=== PATIENT | female | born 1955 | race Caucasian/White ===

== ENCOUNTER 2019-05-20 19:20 | Inpatient (IN) | payer MEDICARE, MEDICAID ==
[~2019-05-20] VITALS: Ht 175.3 cm; Wt 54.0 kg
[2019-05-20] MEDS ORDERED: ALBUTEROL/IPRATROPIUM 2.5MG/0.5MG, 3 ML ONE (20:23)
[2019-05-20] MEDS ORDERED: SODIUM CHLORIDE FLUSH 10ML SYR IVF ONE (20:30)
[2019-05-20] MEDS ORDERED: ALBUTEROL/IPRATROPIUM 2.5MG/0.5MG, 3 ML NPPB ONE (20:30)
[2019-05-20 20:46] LABS: BASOPHILS # (AUTO) 0.06 x10^3/uL (0-0.1); BASOPHILS % (AUTO) 1 % (0-1); EOSINOPHILS % (AUTO) 10 % (1-7); LYMPHOCYTES % (AUTO) 28 % (22-44); MD NO; MEAN CORPUSCULAR HEMOGLOBIN 28.1 pg (27.0-34.8); MEAN CORPUSCULAR HGB CONC 31.7 g/dL (32.4-35.8); MEAN CORPUSCULAR VOLUME 88.8 fL (80-100); MEAN PLATELET VOLUME 8.1 fL (7.4-10.4); MONOCYTES # (AUTO) 0.98 x10^3/uL (0.2-0.8); MONOCYTES % (AUTO) 13 % (2-9); NEUTROPHILS % (AUTO) 49 % (42-75); PLATELET COUNT 318 x10^3/uL (130-400); RED BLOOD COUNT 4.52 x10^6/uL (3.82-5.3); RED CELL DISTRIBUTION WIDTH 17.3 % (9.6-15.2)
[2019-05-20 20:56] LABS: ALANINE AMINOTRANSFERASE 51 U/L (12-78); ANION GAP 4 mmol/L (5-15); CALCIUM 9.6 mg/dL (8.5-10.1); CHLORIDE 105 mmol/L (98-107); CREATININE 1.08 mg/dL (0.55-1.02)
[2019-05-20 21:00] LABS: ALKALINE PHOSPHATASE 90 U/L (45-117); BILIRUBIN,TOTAL 0.3 mg/dL (0.2-1.0); TOTAL PROTEIN 6.7 g/dL (6.4-8.2); TROPONIN I 0.039 ng/mL (0.000-0.045)
--- NOTE | 2019-05-20 21:09 | NUR ---
PT UP FOR RECHECK. ALL RESULTS BACK.
[2019-05-20] MEDS ORDERED: SODIUM CHLORIDE FLUSH 10ML SYR IVF PRN (21:30)
--- NOTE | 2019-05-20 22:02 | NUR ---
report to bennie byrd for room 369
[2019-05-20] MEDS ORDERED: FLUT1AER INH (22:30)
[2019-05-20] MEDS ORDERED: MELA10TA PO (22:30)
[2019-05-20] MEDS ORDERED: VITA1CAP7 PO (22:30)
[2019-05-20] MEDS ORDERED: CRANBERRY (22:30)
[2019-05-20] MEDS ORDERED: METO25TA35 PO (22:30)
[2019-05-20] MEDS ORDERED: FLUO10TA PO (22:30)
[2019-05-20] MEDS ORDERED: CHOL5000 PO (22:30)
[2019-05-20] MEDS ORDERED: DOXE50CA PO (22:30)
[2019-05-20 22:47] VITALS: BP 123/88
[2019-05-20] MEDS ORDERED: FUROSEMIDE 20 MG/2 ML IV ONE (23:00)
[2019-05-21] MEDS ORDERED: ENALAPRILAT 1.25 MG/ML, 2ML IVPush PRN (00:30)
[2019-05-21] MEDS ORDERED: MELATONIN 5 MG TABLET PO PRN (00:30)
[2019-05-21] MEDS ORDERED: LIDODERM 5% PATCH TD PRN (00:30)
[2019-05-21] MEDS ORDERED: ONDANSETRON 2MG/ML, 2ML IVPush PRN (00:30)
[2019-05-21] MEDS ORDERED: BISACODYL 10 MG SUPP PR PRN (00:30)
[2019-05-21] MEDS ORDERED: POLYETHYLENE GLYCOL 17 GM PACKET PO PRN (00:30)
[2019-05-21] MEDS: DOXEPIN 25 MG CAPSULE PO SCH ×2 (00:52→20:51)
[2019-05-21] MEDS: HEPARIN 5,000 UNITS/ML, 1ML SQ SCH ×3 (00:52→16:24)
[2019-05-21 00:54] VITALS: BP 138/88
[2019-05-21 02:27] LABS: FREE T4 (FREE THYROXINE) 1.14 ng/dL (0.76-1.46); TROPONIN I 0.019 ng/mL (0.000-0.045)
[2019-05-21 02:37] LABS: HEMOGLOBIN A1C 6.1 % (4.2-6.3)
[2019-05-21 06:51] LABS: TROPONIN I < 0.015 ng/mL (0.000-0.045)
[2019-05-21] MEDS ORDERED: BUDESONIDE 0.5 MG/2 ML INHA ONE (06:56)
[2019-05-21] MEDS: ALBUTEROL/IPRATROPIUM 2.5MG/0.5MG, 3 ML NPPB SCH ×4 (07:00→18:13)
[2019-05-21 08:01] VITALS: BP 115/79
[2019-05-21] MEDS: BUDESONIDE 0.5 MG/2 ML INHA NPPB SCH ×2 (09:00→18:13)
[2019-05-21] MEDS: FLUOXETINE 10 MG CAP PO SCH (09:56)
[2019-05-21] MEDS: METOPROLOL TARTRATE 25 MG TABLET PO SCH (09:56)
[2019-05-21 16:45] VITALS: BP 125/87
[2019-05-21 19:50] VITALS: BP 124/80
[2019-05-21] MEDS: methylPREDNISolone SOD SUCC 125 MG/2 ML IVPush SCH (20:51)
[2019-05-21] MEDS: NICOTINE 21 MG/24 HR PATCH.TD24 TD SCH (21:18)
[2019-05-22] MEDS: HEPARIN 5,000 UNITS/ML, 1ML SQ SCH ×3 (00:48→15:07)
[2019-05-22 01:44] VITALS: BP 133/87
[2019-05-22] MEDS: methylPREDNISolone SOD SUCC 125 MG/2 ML IVPush SCH ×4 (03:13→20:53)
[2019-05-22 05:52] LABS: BASOPHILS % (AUTO) 0 % (0-1); EOSINOPHILS % (AUTO) 0 % (1-7); LYMPHOCYTES # (AUTO) 0.57 x10^3/uL (1-3.4); LYMPHOCYTES % (AUTO) 8 % (22-44); MD NO; MEAN CORPUSCULAR HEMOGLOBIN 27.3 pg (27.0-34.8); MEAN CORPUSCULAR HGB CONC 31.5 g/dL (32.4-35.8); MEAN CORPUSCULAR VOLUME 86.7 fL (80-100); MEAN PLATELET VOLUME 8.4 fL (7.4-10.4); MONOCYTES # (AUTO) 0.08 x10^3/uL (0.2-0.8); MONOCYTES % (AUTO) 1 % (2-9); NEUTROPHILS # (AUTO) 6.57 x10^3/uL (1.8-6.8); NEUTROPHILS % (AUTO) 91 % (42-75); PLATELET COUNT 294 x10^3/uL (130-400); RED BLOOD COUNT 4.39 x10^6/uL (3.82-5.3)
[2019-05-22 06:05] LABS: ANION GAP 6 mmol/L (5-15); CALCIUM 9.2 mg/dL (8.5-10.1); CHLORIDE 101 mmol/L (98-107); CHOLESTEROL, TOTAL 181 mg/dL (140-239); CREATININE 0.96 mg/dL (0.55-1.02); TRIGLYCERIDES 38 mg/dL (50-200); VLDL CHOLESTEROL 8 mg/dL (0-25)
[2019-05-22 06:07] LABS: CHOL/HDL RATIO 2.5; HDL CHOL % 39 % (28-40); HDL CHOLESTEROL (DIRECT) 71 mg/dL (40-60); LDL CHOLESTEROL,CALCULATED 102 mg/dL (54-169); LDL/HDL RATIO 1.4 (0.5-3.0)
[2019-05-22] MEDS: ALBUTEROL/IPRATROPIUM 2.5MG/0.5MG, 3 ML NPPB SCH ×3 (06:43→20:20)
[2019-05-22 06:48] VITALS: BP 145/98
[2019-05-22] MEDS: FLUOXETINE 10 MG CAP PO SCH (08:11)
[2019-05-22] MEDS: METOPROLOL TARTRATE 25 MG TABLET PO SCH (08:15)
[2019-05-22] MEDS: BUDESONIDE 0.5 MG/2 ML INHA NPPB SCH ×2 (09:00→20:20)
[2019-05-22 12:48] VITALS: BP 152/96
[2019-05-22 19:07] VITALS: BP 164/98
[2019-05-22] MEDS: NICOTINE 21 MG/24 HR PATCH.TD24 TD SCH (20:53)
[2019-05-22] MEDS: DOXEPIN 25 MG CAPSULE PO SCH (20:53)
[2019-05-23 00:31] VITALS: BP 159/101
[2019-05-23] MEDS: HEPARIN 5,000 UNITS/ML, 1ML SQ SCH ×3 (00:31→17:09)
[2019-05-23] MEDS: ACETAMINOPHEN 325 MG TABLET PO PRN ×2 (00:59→09:59)
[2019-05-23] MEDS: ENALAPRILAT 1.25 MG/ML, 1ML IVPush PRN ×2 (01:31→20:42)
[2019-05-23] MEDS: methylPREDNISolone SOD SUCC 125 MG/2 ML IVPush SCH (02:35)
[2019-05-23 02:37] VITALS: BP 146/92
[2019-05-23 07:29] VITALS: BP 172/95
[2019-05-23] MEDS: FLUOXETINE 10 MG CAP PO SCH (08:40)
[2019-05-23] MEDS: METOPROLOL TARTRATE 25 MG TABLET PO SCH (08:40)
[2019-05-23] MEDS: NICOTINE 21 MG/24 HR PATCH.TD24 TD SCH (08:41)
[2019-05-23] MEDS: ALBUTEROL/IPRATROPIUM 2.5MG/0.5MG, 3 ML NPPB SCH ×3 (09:00→20:55)
[2019-05-23] MEDS: BUDESONIDE 0.5 MG/2 ML INHA NPPB SCH ×2 (09:00→20:55)
[2019-05-23] MEDS: methylPREDNISolone SOD SUCC 40 MG/ML IVPush SCH ×3 (12:57→23:05)
[2019-05-23 14:50] VITALS: BP 154/97
[2019-05-23 19:48] VITALS: BP 157/106
[2019-05-23] MEDS: DOXEPIN 25 MG CAPSULE PO SCH (20:40)
[2019-05-24] MEDS: HEPARIN 5,000 UNITS/ML, 1ML SQ SCH ×3 (00:53→16:29)
[2019-05-24 02:18] VITALS: BP 130/95
[2019-05-24] MEDS: methylPREDNISolone SOD SUCC 40 MG/ML IVPush SCH ×4 (05:03→23:49)
[2019-05-24] MEDS: BUDESONIDE 0.5 MG/2 ML INHA NPPB SCH ×2 (06:57→20:10)
[2019-05-24] MEDS: ALBUTEROL/IPRATROPIUM 2.5MG/0.5MG, 3 ML NPPB SCH ×2 (06:57→20:10)
[2019-05-24 07:12] VITALS: BP 144/87
[2019-05-24] MEDS: METOPROLOL TARTRATE 25 MG TABLET PO SCH (09:21)
[2019-05-24] MEDS: FLUOXETINE 10 MG CAP PO SCH (09:21)
[2019-05-24] MEDS: NICOTINE 21 MG/24 HR PATCH.TD24 TD SCH (09:22)
[2019-05-24 12:55] VITALS: BP 155/99
[2019-05-24 18:56] VITALS: BP 163/109
[2019-05-24] MEDS: ENALAPRILAT 1.25 MG/ML, 1ML IVPush PRN ×2 (19:20→20:45)
[2019-05-24] MEDS: DOXEPIN 25 MG CAPSULE PO SCH (19:54)
[2019-05-24 20:35] VITALS: BP 163/104
[2019-05-24 21:13] VITALS: BP 149/89
[2019-05-25] VITALS (7 sets, daily range): BP systolic 156–189; BP diastolic 90–110
[2019-05-25] MEDS: HEPARIN 5,000 UNITS/ML, 1ML SQ SCH ×3 (00:58→17:00)
[2019-05-25] MEDS ORDERED: hydrALAzine 20 MG/ML, 1ML IV ONE (01:00)
[2019-05-25] MEDS: methylPREDNISolone SOD SUCC 40 MG/ML IVPush SCH ×2 (06:01→11:26)
[2019-05-25] MEDS: ALBUTEROL/IPRATROPIUM 2.5MG/0.5MG, 3 ML NPPB SCH ×2 (07:25→20:40)
[2019-05-25] MEDS: BUDESONIDE 0.5 MG/2 ML INHA NPPB SCH ×2 (07:25→20:40)
[2019-05-25] MEDS: NICOTINE 21 MG/24 HR PATCH.TD24 TD SCH (10:00)
[2019-05-25] MEDS: METOPROLOL TARTRATE 25 MG TABLET PO SCH ×2 (10:00→20:06)
[2019-05-25] MEDS: FLUOXETINE 10 MG CAP PO SCH (10:00)
[2019-05-25] MEDS ORDERED: PRED10TA14 PO (17:11)
[2019-05-25] MEDS ORDERED: METO25TA35 PO (17:11)
[2019-05-25] MEDS ORDERED: NICO-487 TD (17:11)
[2019-05-25] MEDS ORDERED: FLUT1DIS3 INH (17:11)
[2019-05-25] MEDS ORDERED: POTA10TA5 PO (17:11)
[2019-05-25] MEDS ORDERED: ASPI-515 PO (17:11)
[2019-05-25] MEDS ORDERED: TIOT18CA INH (17:11)
[2019-05-25] MEDS ORDERED: IPRA3AMP30 NPPB (17:11)
[2019-05-25] MEDS ORDERED: LISI5TAB PO (17:26)
[2019-05-25] MEDS: ENALAPRILAT 1.25 MG/ML, 1ML IVPush PRN (19:40)
[2019-05-25] MEDS: DOXEPIN 25 MG CAPSULE PO SCH (20:05)
[2019-05-25] MEDS: LISINOPRIL 5 MG TABLET PO SCH (20:06)
[2019-05-26] VITALS (7 sets, daily range): BP systolic 125–173; BP diastolic 89–126
[2019-05-26] MEDS: HEPARIN 5,000 UNITS/ML, 1ML SQ SCH ×3 (01:00→16:43)
[2019-05-26] MEDS: ENALAPRILAT 1.25 MG/ML, 1ML IVPush PRN (03:50)
[2019-05-26] MEDS: ASPIRIN 81 MG TABLET EC PO SCH (05:22)
[2019-05-26] MEDS: FLUOXETINE 10 MG CAP PO SCH (07:50)
[2019-05-26] MEDS: POTASSIUM CHLORIDE 20 MEQ PACKET PO SCH (07:50)
[2019-05-26] MEDS: METOPROLOL TARTRATE 25 MG TABLET PO SCH ×2 (07:50→21:01)
[2019-05-26] MEDS: AZITHROMYCIN 500 MG TABLET PO SCH (07:50)
[2019-05-26] MEDS: NICOTINE 21 MG/24 HR PATCH.TD24 TD SCH (07:51)
[2019-05-26] MEDS: FUROSEMIDE 20 MG TABLET PO SCH (07:51)
[2019-05-26] MEDS: LISINOPRIL 5 MG TABLET PO SCH ×2 (07:51→21:01)
[2019-05-26] MEDS: ALBUTEROL/IPRATROPIUM 2.5MG/0.5MG, 3 ML NPPB SCH ×2 (09:30→19:07)
[2019-05-26] MEDS: BUDESONIDE 0.5 MG/2 ML INHA NPPB SCH ×2 (09:30→19:07)
[2019-05-26] MEDS: DOXEPIN 25 MG CAPSULE PO SCH (21:01)
[2019-05-27] MEDS: HEPARIN 5,000 UNITS/ML, 1ML SQ SCH ×3 (00:28→16:57)
[2019-05-27 01:34] VITALS: BP 127/66
[2019-05-27] MEDS: ASPIRIN 81 MG TABLET EC PO SCH (05:41)
[2019-05-27 07:08] VITALS: BP 110/75
[2019-05-27] MEDS: POTASSIUM CHLORIDE 20 MEQ PACKET PO SCH (07:55)
[2019-05-27] MEDS: AZITHROMYCIN 500 MG TABLET PO SCH (07:56)
[2019-05-27] MEDS: FLUOXETINE 10 MG CAP PO SCH (07:56)
[2019-05-27] MEDS: LISINOPRIL 5 MG TABLET PO SCH ×2 (07:56→21:16)
[2019-05-27] MEDS: FUROSEMIDE 20 MG TABLET PO SCH (07:56)
[2019-05-27] MEDS: METOPROLOL TARTRATE 25 MG TABLET PO SCH ×2 (07:56→21:16)
[2019-05-27] MEDS: NICOTINE 21 MG/24 HR PATCH.TD24 TD SCH (07:57)
[2019-05-27] MEDS: ALBUTEROL/IPRATROPIUM 2.5MG/0.5MG, 3 ML NPPB SCH ×2 (08:55→19:37)
[2019-05-27] MEDS: BUDESONIDE 0.5 MG/2 ML INHA NPPB SCH ×2 (08:56→19:37)
[2019-05-27 10:18] LABS: ANION GAP 4 mmol/L (5-15); CALCIUM 8.8 mg/dL (8.5-10.1); CHLORIDE 103 mmol/L (98-107); CREATININE 1.06 mg/dL (0.55-1.02)
[2019-05-27 14:56] VITALS: BP 113/80
[2019-05-27] MEDS: ALBUTEROL/IPRATROPIUM 2.5MG/0.5MG, 3 ML NPPB PRN (17:06)
[2019-05-27 18:54] VITALS: BP 118/77
[2019-05-27] MEDS: DOXEPIN 25 MG CAPSULE PO SCH (21:16)
[2019-05-28 00:35] VITALS: BP 116/80
[2019-05-28] MEDS: HEPARIN 5,000 UNITS/ML, 1ML SQ SCH ×3 (00:57→17:17)
[2019-05-28] MEDS: ASPIRIN 81 MG TABLET EC PO SCH (06:02)
[2019-05-28 06:50] VITALS: BP 109/76
[2019-05-28] MEDS: BUDESONIDE 0.5 MG/2 ML INHA NPPB SCH ×2 (08:04→21:06)
[2019-05-28] MEDS: ALBUTEROL/IPRATROPIUM 2.5MG/0.5MG, 3 ML NPPB SCH ×2 (08:04→21:06)
[2019-05-28] MEDS: NICOTINE 21 MG/24 HR PATCH.TD24 TD SCH (09:45)
[2019-05-28] MEDS: AZITHROMYCIN 500 MG TABLET PO SCH (09:45)
[2019-05-28] MEDS: FLUOXETINE 10 MG CAP PO SCH (09:45)
[2019-05-28] MEDS: POTASSIUM CHLORIDE 20 MEQ PACKET PO SCH (09:45)
[2019-05-28] MEDS: LISINOPRIL 5 MG TABLET PO SCH ×2 (09:46→20:29)
[2019-05-28] MEDS: FUROSEMIDE 20 MG TABLET PO SCH (09:46)
[2019-05-28] MEDS: METOPROLOL TARTRATE 25 MG TABLET PO SCH ×2 (09:46→20:29)
[2019-05-28 13:00] VITALS: BP 101/69
[2019-05-28 20:02] VITALS: BP 106/70
[2019-05-28] MEDS: DOXEPIN 25 MG CAPSULE PO SCH (20:29)
[2019-05-29 00:11] VITALS: BP 109/74
[2019-05-29] MEDS: ASPIRIN 81 MG TABLET EC PO SCH (06:12)
[2019-05-29] MEDS: HEPARIN 5,000 UNITS/ML, 1ML SQ SCH ×3 (06:13→20:53)
[2019-05-29] MEDS: POTASSIUM CHLORIDE 20 MEQ PACKET PO SCH (07:45)
[2019-05-29] MEDS: LISINOPRIL 5 MG TABLET PO SCH ×2 (07:45→20:53)
[2019-05-29] MEDS: FUROSEMIDE 20 MG TABLET PO SCH (07:45)
[2019-05-29] MEDS: AZITHROMYCIN 500 MG TABLET PO SCH (07:46)
[2019-05-29] MEDS: NICOTINE 21 MG/24 HR PATCH.TD24 TD SCH (07:46)
[2019-05-29] MEDS: FLUOXETINE 10 MG CAP PO SCH (07:46)
[2019-05-29] MEDS: METOPROLOL TARTRATE 25 MG TABLET PO SCH ×2 (07:46→20:53)
[2019-05-29] MEDS: BUDESONIDE 0.5 MG/2 ML INHA NPPB SCH ×2 (07:50→20:04)
[2019-05-29] MEDS: ALBUTEROL/IPRATROPIUM 2.5MG/0.5MG, 3 ML NPPB SCH ×2 (07:50→20:04)
[2019-05-29 09:06] VITALS: BP 104/73
[2019-05-29 12:48] VITALS: BP 103/70
[2019-05-29 20:01] VITALS: BP 108/75
[2019-05-29] MEDS: DOXEPIN 25 MG CAPSULE PO SCH (20:53)
[2019-05-30 02:14] VITALS: BP 118/84
[2019-05-30] MEDS: ASPIRIN 81 MG TABLET EC PO SCH (06:41)
[2019-05-30] MEDS: HEPARIN 5,000 UNITS/ML, 1ML SQ SCH ×3 (06:41→21:32)
[2019-05-30] MEDS: ALBUTEROL/IPRATROPIUM 2.5MG/0.5MG, 3 ML NPPB SCH ×2 (07:05→20:12)
[2019-05-30] MEDS: BUDESONIDE 0.5 MG/2 ML INHA NPPB SCH ×2 (07:05→20:12)
[2019-05-30] MEDS: POTASSIUM CHLORIDE 20 MEQ PACKET PO SCH (08:42)
[2019-05-30] MEDS: NICOTINE 21 MG/24 HR PATCH.TD24 TD SCH (08:43)
[2019-05-30] MEDS: FLUOXETINE 10 MG CAP PO SCH (08:46)
[2019-05-30] MEDS: LISINOPRIL 5 MG TABLET PO SCH ×2 (08:46→21:33)
[2019-05-30] MEDS: AZITHROMYCIN 500 MG TABLET PO SCH (08:46)
[2019-05-30] MEDS: FUROSEMIDE 20 MG TABLET PO SCH (08:47)
[2019-05-30] MEDS: METOPROLOL TARTRATE 25 MG TABLET PO SCH ×2 (08:47→21:33)
[2019-05-30 09:54] VITALS: BP 90/63
[2019-05-30 15:34] VITALS: BP 103/69
[2019-05-30 19:20] VITALS: BP 103/71
[2019-05-30] MEDS: DOXEPIN 25 MG CAPSULE PO SCH (21:33)
[2019-05-31 01:32] VITALS: BP 115/77
[2019-05-31] MEDS: HEPARIN 5,000 UNITS/ML, 1ML SQ SCH (05:37)
[2019-05-31] MEDS: ASPIRIN 81 MG TABLET EC PO SCH (05:37)
[2019-05-31 06:56] VITALS: BP 106/73
[2019-05-31] MEDS: BUDESONIDE 0.5 MG/2 ML INHA NPPB SCH (07:15)
[2019-05-31] MEDS: ALBUTEROL/IPRATROPIUM 2.5MG/0.5MG, 3 ML NPPB SCH (07:15)
[2019-05-31] MEDS: FUROSEMIDE 20 MG TABLET PO SCH (08:47)
[2019-05-31] MEDS: POTASSIUM CHLORIDE 20 MEQ PACKET PO SCH (08:47)
[2019-05-31] MEDS: NICOTINE 21 MG/24 HR PATCH.TD24 TD SCH (08:47)
[2019-05-31] MEDS: AZITHROMYCIN 500 MG TABLET PO SCH (08:47)
[2019-05-31] MEDS: METOPROLOL TARTRATE 25 MG TABLET PO SCH (08:48)
[2019-05-31] MEDS: FLUOXETINE 10 MG CAP PO SCH (08:48)
[2019-05-31] MEDS: LISINOPRIL 5 MG TABLET PO SCH (08:48)
[2019-05-31] MEDS ORDERED: PRED10TA14 PO (12:03)
[2019-05-31] MEDS: ALBUTEROL/IPRATROPIUM 2.5MG/0.5MG, 3 ML NPPB PRN (12:22)
== END 2019-05-31 13:23 | disposition home health service (06) | DRG 291 ==
LOC: ED 21:33 → EDIP 21:35 → 3NE 22:30
PROVIDERS: ADMIT Family Medicine; ATTEND Internal Medicine
DX: I11.0 Hypertensive heart disease with heart failure (principal); N17.0 Acute kidney failure with tubular necrosis; I50.31 Acute diastolic (congestive) heart failure; E43 Unspecified severe protein-calorie malnutrition; J96.21 Acute and chronic respiratory failure with hypoxia; J44.1 Chronic obstructive pulmonary disease with (acute) exacerbation; Z68.1 Body mass index [BMI] 19.9 or less, adult; Z66 Do not resuscitate; M81.0 Age-related osteoporosis without current pathological fracture; F17.210 Nicotine dependence, cigarettes, uncomplicated; E11.621 Type 2 diabetes mellitus with foot ulcer; F41.9 Anxiety disorder, unspecified; B18.2 Chronic viral hepatitis C; G89.29 Other chronic pain; I25.10 Atherosclerotic heart disease of native coronary artery without angina pectoris; L97.529 Non-pressure chronic ulcer of other part of left foot with unspecified severity; M19.90 Unspecified osteoarthritis, unspecified site; M40.204 Unspecified kyphosis, thoracic region; Z99.81 Dependence on supplemental oxygen; Z86.718 Personal history of other venous thrombosis and embolism; Z86.711 Personal history of pulmonary embolism; Z86.14 Personal history of Methicillin resistant Staphylococcus aureus infection; Z79.899 Other long term (current) drug therapy; Z79.51 Long term (current) use of inhaled steroids; Z79.82 Long term (current) use of aspirin; Z82.49 Family history of ischemic heart disease and other diseases of the circulatory system; I25.2 Old myocardial infarction
CPT/HCPCS: 36415; 71045; 80048; 80053; 80061; 83036; 83880; 84439; 84443; 84484; 85025; 93005; 93306; 93970; 94640; 96374; G0378; J1644; J7620; J7626; J0360; J1940; J2920; J2930; J7512

== ENCOUNTER 2019-06-03 19:41 | Inpatient (IN) | payer MEDICARE, MEDICAID ==
[~2019-06-03] VITALS: Ht 154.9 cm; Wt 50.7 kg
[2019-06-06 14:11] VITALS: BP 105/71
== END 2019-06-06 16:28 | DRG 640 ==
LOC: ED 21:57 → EDIP 23:17 → INTOOBSV 23:17 → 4WST 23:58 → OBSVTOIN 06-04 13:14
PROVIDERS: ADMIT Internal Medicine; ATTEND Internal Medicine
DX: R62.7 Adult failure to thrive (principal); N17.0 Acute kidney failure with tubular necrosis; N39.0 Urinary tract infection, site not specified; J96.10 Chronic respiratory failure, unspecified whether with hypoxia or hypercapnia; E44.0 Moderate protein-calorie malnutrition; I50.32 Chronic diastolic (congestive) heart failure; I11.0 Hypertensive heart disease with heart failure; L97.529 Non-pressure chronic ulcer of other part of left foot with unspecified severity; E03.9 Hypothyroidism, unspecified; E86.0 Dehydration; F17.210 Nicotine dependence, cigarettes, uncomplicated; I25.2 Old myocardial infarction; M19.90 Unspecified osteoarthritis, unspecified site; J44.9 Chronic obstructive pulmonary disease, unspecified; M81.0 Age-related osteoporosis without current pathological fracture; Z66 Do not resuscitate; Z86.711 Personal history of pulmonary embolism; Z86.718 Personal history of other venous thrombosis and embolism; Z99.81 Dependence on supplemental oxygen; Z68.21 Body mass index [BMI] 21.0-21.9, adult
CPT/HCPCS: 36415; 71045; 80048; 80053; 81001; 83735; 84100; 84439; 84443; 84481; 85025; 87086; 93005; 94640; 99285; G0378; J0696; J1644; J7620; J7626; J7030; J7512

== ENCOUNTER 2019-07-20 02:05 | Emergency (ER) | payer MEDICAID, MEDICARE ==
[~2019-07-20] VITALS: Ht 177.8 cm; Wt 50.0 kg
[~2019-07-20 02:05] MED LIST: ASPI-515 PO; CEFD300C37 PO; CHOL5000 PO; CRANBERRY; DOXE50CA PO; FLUO10TA PO; FLUT1AER INH; FLUT1DIS3 INH; IPRA3AMP30 NPPB; LISI5TAB PO; MELA10TA PO; METO25TA35 PO; NICO-487 TD; POTA10TA5 PO; PRED10TA PO; PRED10TA14 PO; TIOT18CA INH; VITA1CAP7 PO
[2019-07-20] MEDS ORDERED: ALBUTEROL/IPRATROPIUM 2.5MG/0.5MG, 3 ML NPPB ONE (02:30)
[2019-07-20] MEDS ORDERED: ALBUTEROL/IPRATROPIUM 2.5MG/0.5MG, 3 ML ONE (02:31)
[2019-07-20 02:38] LABS: MEAN CORPUSCULAR HEMOGLOBIN 29.5 pg (27.0-34.8); MEAN CORPUSCULAR HGB CONC 31.8 g/dL (32.4-35.8); MEAN CORPUSCULAR VOLUME 92.6 fL (80-100); MEAN PLATELET VOLUME 8.3 fL (7.4-10.4); PLATELET COUNT 310 x10^3/uL (130-400); RED BLOOD COUNT 4.16 x10^6/uL (3.82-5.3); RED CELL DISTRIBUTION WIDTH 16.7 % (9.6-15.2)
[2019-07-20] MEDS ORDERED: HYDROcodone/APAP 5/325 TABLET ONE (02:46)
[2019-07-20 02:47] LABS: ALBUMIN 3.3 g/dL (3.4-5.0); ANION GAP 3 mmol/L (5-15); CALCIUM 9.5 mg/dL (8.5-10.1); CHLORIDE 108 mmol/L (98-107); CREATININE 1.05 mg/dL (0.55-1.02)
--- NOTE | 2019-07-20 02:47 | NUR ---
ATTEMPTED TO OBTAIN EKG. PT STATES "I AM HAVING A BREATHING ATTACK. YOU CAN'T DO THAT RIGHT NOW". EXPLAINED THE IMPORTANCE OF EKG. PT CONTINUES TO REFUSE UNTIL BREATHING IS BETTER. DR SHEIKH NOTIFIED.
[2019-07-20 02:51] LABS: TROPONIN I < 0.015 ng/mL (0.000-0.045)
[2019-07-20] MEDS ORDERED: HYDROcodone/APAP 5/325 TABLET PO ONE (03:00)
--- NOTE | 2019-07-20 04:21 | NUR ---
PT ATTEMPTING TO PROVIDED UA BUT IS UNABLE. PT ON BSC.
--- NOTE | 2019-07-20 04:46 | NUR ---
PT PROVIDED WATER INSTRUCTED BY TO HELP PT PROVIDE UA. PT BACK IN BED.
[2019-07-20 05:14] LABS: BASOPHILS # (AUTO) 0.06 x10^3/uL (0-0.1); BASOPHILS % (AUTO) 1 % (0-1); EOSINOPHILS # (AUTO) 1.34 x10^3/uL (0-0.4); EOSINOPHILS % (AUTO) 12 % (1-7); LYMPHOCYTES # (AUTO) 2.33 x10^3/uL (1-3.4); LYMPHOCYTES % (AUTO) 21 % (22-44); MD SCAN; MONOCYTES % (AUTO) 16 % (2-9); NEUTROPHILS # (AUTO) 5.64 x10^3/uL (1.8-6.8); NEUTROPHILS % (AUTO) 51 % (42-75)
--- NOTE | 2019-07-20 05:50 | NUR ---
STRAIGHT CATH FOR URINE PERFORMED PER ORDER ONLY .25ML URINE OUTPUT. NOTIFIED AND WILL ORDER FLUILDS
[2019-07-20] MEDS ORDERED: SODIUM CHLORIDE 0.9% 1,000ML IVBOLUS ONE (06:00)
--- NOTE | 2019-07-20 06:50 | NUR ---
REPORT FROM BRIGITTE GAFFNEY. POC CLARIFIED WITH BRIGITTE/PROVIDER- TO REPEAT STRAIGHT CATH-THEN DISPO VS ADMIT VSS ON GROUND WATER TECHNICIAN
--- NOTE | 2019-07-20 08:19 | NUR ---
STRAIGHT CATH URINE SAMPLE OBTAINED-WALKED TO LAB IVF COMPLETE-CHARTED IN EMAR PATIENT UPDATED ON ESTIMATED POC
[2019-07-20 08:35] LABS: MICROSCOPIC AUTO
[2019-07-20 08:37] LABS: CULTURE INDICATED? YES
--- NOTE | 2019-07-20 09:04 | NUR ---
TASK RN ASSISTING PRIMARY. VSS/UPDATED IN COMPUTER. PT SLEEPING AT THIS TIME, NAD. URINE RESULTS BACK, PT FOR RECHECK. NS BOLUS COMPLETED. ED DIABETIC TRAY ORDERED FOR PT. CALL LIGHT WITHIN REACH.
--- NOTE | 2019-07-20 09:51 | NUR ---
TASK RN, ASSISTING PRIMARY. EARLNinfa ZEPEDA CALLED AND NO ANSWER.
--- NOTE | 2019-07-20 10:47 | NUR ---
THROUGHPUT: [facility] ETA 115 FOR TRANSPORT BACK TO [facility], RECEIVING MD KORY PANTOJA. PATIENT DENIED BY [place], PATIENT MEDICAID NUMBER NOT PULLING UP PER [facility]TM. AWAITING [facility].
[2019-07-20 11:10] VITALS: BP 129/83
== END 2019-07-20 11:12 | disposition home or self-care (01) ==
LOC: ED 05:52
DX: J44.1 Chronic obstructive pulmonary disease with (acute) exacerbation (principal); R10.9 Unspecified abdominal pain; M48.54XA Collapsed vertebra, not elsewhere classified, thoracic region, initial encounter for fracture; R91.1 Solitary pulmonary nodule; I10 Essential (primary) hypertension; Z87.891 Personal history of nicotine dependence
CPT/HCPCS: 36415; 71045; 74176; 80048; 81001; 82040; 84484; 85025; 87077; 87086; 87186; 93005; 94640; 99284; J7030; J7512; J7620

== ENCOUNTER 2019-10-14 19:13 | Inpatient (IN) | payer MEDICARE, MEDICAID ==
[~2019-10-14] VITALS: Ht 170.2 cm; Wt 46.5 kg
[2019-10-14] MEDS ORDERED: SODIUM CHLORIDE FLUSH 10ML SYR IVF ONE (19:30)
[2019-10-14 19:40] LABS: BASOPHILS # (AUTO) 0.03 x10^3/uL (0-0.1); BASOPHILS % (AUTO) 0 % (0-1); EOSINOPHILS # (AUTO) 0.16 x10^3/uL (0-0.4); EOSINOPHILS % (AUTO) 1 % (1-7); LYMPHOCYTES # (AUTO) 1.24 x10^3/uL (1-3.4); LYMPHOCYTES % (AUTO) 9 % (22-44); MD NO; MEAN CORPUSCULAR HEMOGLOBIN 28.9 pg (27.0-34.8); MEAN CORPUSCULAR HGB CONC 31.3 g/dL (32.4-35.8); MEAN CORPUSCULAR VOLUME 92.4 fL (80-100); MEAN PLATELET VOLUME 8.4 fL (7.4-10.4); MONOCYTES # (AUTO) 1.18 x10^3/uL (0.2-0.8); MONOCYTES % (AUTO) 9 % (2-9); NEUTROPHILS # (AUTO) 10.84 x10^3/uL (1.8-6.8); NEUTROPHILS % (AUTO) 81 % (42-75); PLATELET COUNT 365 x10^3/uL (130-400); RED BLOOD COUNT 4.42 x10^6/uL (3.82-5.3)
--- NOTE | 2019-10-14 19:40 | NUR ---
PT ARRIVES TO ED VIA PRIVATE VEHICLE AFTER DAUGHTER NOTICED CONFUSION AND SLURRED SPEECH. PTS DAUGHTER REPORTS MUCH MORE SEVERE THEN NORMAL. PTS DAUGHTEER REPROTS DIFFICULTY TAKING CARE OF MOTHER AT HOME. SHE HAS BEEN IN HER CARE FOR THE PAST MONTH. PT HAS SIGNIFICANT KYPHOSIS, BUT DESPITE THAT HER GROSS NERVES ARE INTACT AND PT FOLLOWS COMMANDS WITHOUT DIFFICULTY. PT CONNECTED TO MONITORS. PT WAS STRAIGHT BACK CODE NEURO FROM [facility]. PT TAKEN TO CT AND BACK AND NOW AWAITING READS. PER DR. BIRD PT IS NOT A CANIDATE FOR TPA.
[2019-10-14 19:51] LABS: ALANINE AMINOTRANSFERASE 36 U/L (12-78); ALBUMIN 3.2 g/dL (3.4-5.0); ANION GAP 3 mmol/L (5-15); CALCIUM 9.9 mg/dL (8.5-10.1); CHLORIDE 107 mmol/L (98-107); CREATININE 1.01 mg/dL (0.55-1.02)
[2019-10-14 19:53] LABS: ALKALINE PHOSPHATASE 130 U/L (45-117); BILIRUBIN,TOTAL 0.3 mg/dL (0.2-1.0); TOTAL PROTEIN 7.5 g/dL (6.4-8.2)
[2019-10-14] MEDS ORDERED: LABETALOL 5MG/ML, 20ML IVPush STA (20:12)
[2019-10-14] MEDS ORDERED: LABETALOL 5MG/ML, 20ML ONE (20:14)
--- NOTE | 2019-10-14 20:17 | NUR ---
PT REPOSTIONED IN BED, PT MEDICATED PER EMAR.
[2019-10-14] MEDS ORDERED: methylPREDNISolone SOD SUCC 125 MG/2 ML IVPush ONE (20:30)
[2019-10-14] MEDS ORDERED: methylPREDNISolone SOD SUCC 125 MG/2 ML ONE (20:59)
[2019-10-14] MEDS ORDERED: ONDANSETRON 4 MG TABLET PO PRN (21:00)
[2019-10-14] MEDS ORDERED: BISACODYL 10 MG SUPP PR PRN (21:00)
[2019-10-14] MEDS ORDERED: DOCUSATE 100 MG CAPSULE PO PRN (21:00)
[2019-10-14] MEDS ORDERED: LISINOPRIL 5 MG TABLET PO ONE (21:00)
[2019-10-14] MEDS ORDERED: POLYETHYLENE GLYCOL 17 GM PACKET PO PRN (21:00)
[2019-10-14] MEDS: SODIUM CHLORIDE 0.9% 1,000 ML IV SCH (21:05)
[2019-10-14] MEDS ORDERED: LISINOPRIL 5 MG TABLET ONE (21:09)
[2019-10-14] MEDS ORDERED: METOPROLOL TARTRATE 25 MG TABLET ONE (21:09)
[2019-10-14] MEDS: METOPROLOL TARTRATE 25 MG TABLET PO SCH (21:11)
[2019-10-14] MEDS ORDERED: NICOTINE 7 MG/24 HR PATCH.TD24 ONE (21:13)
[2019-10-14] MEDS: NICOTINE 7 MG/24 HR PATCH.TD24 TD SCH (21:15)
--- NOTE | 2019-10-14 21:16 | NUR ---
PT MEDICATED PER EMAR.
--- NOTE | 2019-10-14 21:45 | NUR ---
Maria Elena li in [facility] - 10/14/19 at 2147 by JOSE REPORT TO EDIN GAFFNEY [phone]
--- NOTE | 2019-10-14 22:12 | NUR ---
REPORT TO EDIN GAFFNEY
[2019-10-14 22:16] VITALS: BP 145/95
[2019-10-14 22:41] VITALS: BP 145/95
[2019-10-14] MEDS: ATORVASTATIN 40 MG TABLET PO SCH (22:46)
[2019-10-14] MEDS: DOXEPIN 25 MG CAPSULE PO SCH (22:56)
[2019-10-15 01:33] VITALS: BP 138/82
[2019-10-15] MEDS: methylPREDNISolone SOD SUCC 125 MG/2 ML IVPush SCH ×2 (05:01→12:55)
[2019-10-15 06:26] LABS: BASOPHILS # (AUTO) 0.01 x10^3/uL (0-0.1); BASOPHILS % (AUTO) 0 % (0-1); EOSINOPHILS # (AUTO) 0.07 x10^3/uL (0-0.4); EOSINOPHILS % (AUTO) 1 % (1-7); LYMPHOCYTES # (AUTO) 0.73 x10^3/uL (1-3.4); LYMPHOCYTES % (AUTO) 10 % (22-44); MD NO; MEAN CORPUSCULAR HEMOGLOBIN 28.6 pg (27.0-34.8); MEAN CORPUSCULAR HGB CONC 30.9 g/dL (32.4-35.8); MEAN CORPUSCULAR VOLUME 92.4 fL (80-100); MEAN PLATELET VOLUME 8.8 fL (7.4-10.4); MONOCYTES # (AUTO) 0.03 x10^3/uL (0.2-0.8); MONOCYTES % (AUTO) 0 % (2-9); NEUTROPHILS # (AUTO) 6.83 x10^3/uL (1.8-6.8); NEUTROPHILS % (AUTO) 89 % (42-75); PLATELET COUNT 340 x10^3/uL (130-400); RED BLOOD COUNT 4.26 x10^6/uL (3.82-5.3); RED CELL DISTRIBUTION WIDTH 13.9 % (9.6-15.2)
[2019-10-15 06:34] LABS: CHLORIDE 109 mmol/L (98-107)
[2019-10-15 06:48] LABS: ALANINE AMINOTRANSFERASE 35 U/L (12-78); ALBUMIN 2.9 g/dL (3.4-5.0); ALKALINE PHOSPHATASE 124 U/L (45-117); ANION GAP 4 mmol/L (5-15); BILIRUBIN,TOTAL 0.3 mg/dL (0.2-1.0); CALCIUM 9.6 mg/dL (8.5-10.1); CHOL/HDL RATIO 2.7; CHOLESTEROL, TOTAL 159 mg/dL (140-239); CREATININE 0.91 mg/dL (0.55-1.02); HDL CHOL % 38 % (28-40); HDL CHOLESTEROL (DIRECT) 60 mg/dL (40-60); LDL CHOLESTEROL,CALCULATED 89 mg/dL (54-169); LDL/HDL RATIO 1.5 (0.5-3.0); TOTAL PROTEIN 6.5 g/dL (6.4-8.2); TRIGLYCERIDES 49 mg/dL (50-200); VLDL CHOLESTEROL 10 mg/dL (0-25)
[2019-10-15 07:10] VITALS: BP 106/72
[2019-10-15] MEDS: BUDESONIDE 0.5 MG/2 ML INHA NPPB SCH ×2 (07:21→20:25)
[2019-10-15] MEDS: ALBUTEROL/IPRATROPIUM 2.5MG/0.5MG, 3 ML NPPB SCH ×3 (07:21→20:25)
[2019-10-15] MEDS ORDERED: IPRATROPIUM 0.5 MG/2.5 ML INHA NPPB SCH (09:00)
[2019-10-15] MEDS: CHOLECALCIFEROL 5,000u TAB PO SCH (09:18)
[2019-10-15] MEDS: POTASSIUM CHLORIDE 10 MEQ TABLET.ER PO SCH (09:18)
[2019-10-15] MEDS: FLUOXETINE 10 MG CAP PO SCH (09:18)
[2019-10-15] MEDS: SODIUM CHLORIDE 0.9% 1,000 ML IV SCH (09:18)
[2019-10-15] MEDS: MULTIVITS,STRESS FORMULA 1 TABLET PO SCH (09:19)
[2019-10-15] MEDS: METOPROLOL TARTRATE 25 MG TABLET PO SCH ×2 (09:19→20:53)
[2019-10-15] MEDS: ASPIRIN 81 MG TABLET CHEW PO/NG SCH (09:21)
[2019-10-15 13:40] VITALS: BP 94/60
[2019-10-15 16:47] LABS: MICROSCOPIC AUTO
[2019-10-15 16:51] LABS: CULTURE INDICATED? YES
[2019-10-15 19:10] VITALS: BP 107/67
[2019-10-15] MEDS: DOXEPIN 25 MG CAPSULE PO SCH (20:53)
[2019-10-15] MEDS: ATORVASTATIN 40 MG TABLET PO SCH (20:53)
[2019-10-15] MEDS: ACETAMINOPHEN 650 MG/20.3 ML UDC PO PRN (20:54)
[2019-10-15] MEDS: NICOTINE 7 MG/24 HR PATCH.TD24 TD SCH (20:54)
[2019-10-16] MEDS: SODIUM CHLORIDE 0.9% 1,000 ML IV SCH ×2 (00:35→11:55)
[2019-10-16 01:58] VITALS: BP 111/75
[2019-10-16] MEDS: ALBUTEROL/IPRATROPIUM 2.5MG/0.5MG, 3 ML NPPB SCH ×4 (02:35→21:02)
[2019-10-16 07:32] VITALS: BP 123/82
[2019-10-16] MEDS: FLUOXETINE 10 MG CAP PO SCH (07:36)
[2019-10-16] MEDS: POTASSIUM CHLORIDE 10 MEQ TABLET.ER PO SCH (07:36)
[2019-10-16] MEDS: MULTIVITS,STRESS FORMULA 1 TABLET PO SCH (07:36)
[2019-10-16] MEDS: METOPROLOL TARTRATE 25 MG TABLET PO SCH ×2 (07:36→20:24)
[2019-10-16] MEDS: ASPIRIN 81 MG TABLET CHEW PO/NG SCH (07:36)
[2019-10-16] MEDS: CHOLECALCIFEROL 5,000u TAB PO SCH (07:36)
[2019-10-16] MEDS: ACETAMINOPHEN 650 MG/20.3 ML UDC PO PRN (07:39)
[2019-10-16] MEDS: BUDESONIDE 0.5 MG/2 ML INHA NPPB SCH ×2 (09:00→21:02)
[2019-10-16 13:40] VITALS: BP 122/79
[2019-10-16] MEDS: ATORVASTATIN 40 MG TABLET PO SCH (20:24)
[2019-10-16] MEDS: DOXEPIN 25 MG CAPSULE PO SCH (20:24)
[2019-10-16] MEDS: NICOTINE 7 MG/24 HR PATCH.TD24 TD SCH (20:27)
[2019-10-16 20:50] VITALS: BP 156/93
[2019-10-17 02:20] VITALS: BP 137/82
[2019-10-17] MEDS: ALBUTEROL/IPRATROPIUM 2.5MG/0.5MG, 3 ML NPPB SCH ×3 (02:39→15:00)
[2019-10-17] MEDS: SODIUM CHLORIDE 0.9% 1,000 ML IV SCH ×2 (04:37→16:20)
[2019-10-17] MEDS ORDERED: ASPIRIN 325 MG TABLET PO SCH (06:00)
[2019-10-17 08:57] VITALS: BP 134/84
[2019-10-17] MEDS: BUDESONIDE 0.5 MG/2 ML INHA NPPB SCH (09:00)
[2019-10-17] MEDS: POTASSIUM CHLORIDE 10 MEQ TABLET.ER PO SCH (09:58)
[2019-10-17] MEDS: MULTIVITS,STRESS FORMULA 1 TABLET PO SCH (09:58)
[2019-10-17] MEDS: FLUOXETINE 10 MG CAP PO SCH (09:58)
[2019-10-17] MEDS: METOPROLOL TARTRATE 25 MG TABLET PO SCH ×2 (09:58→20:11)
[2019-10-17] MEDS: CHOLECALCIFEROL 5,000u TAB PO SCH (09:59)
--- NOTE | 2019-10-17 10:11 | NUR ---
REC: Soft/thins per pt request due to loss of lower dentures; no orange sheet indicated Addendum: 10/17/19 at 1011 by Sarah WILEY Amended: Links added.
[2019-10-17] MEDS ORDERED: ASPI325T17 PO (11:32)
[2019-10-17] MEDS ORDERED: AMOX1TAB64 PO (11:32)
[2019-10-17] MEDS ORDERED: ATOR40TA78 PO (11:32)
[2019-10-17] MEDS ORDERED: NICO-485 TD (11:32)
[2019-10-17] MEDS ORDERED: PRED20TA PO (11:32)
[2019-10-17 12:58] VITALS: BP 151/98
[2019-10-17 19:36] VITALS: BP 169/95
[2019-10-17] MEDS: NICOTINE 7 MG/24 HR PATCH.TD24 TD SCH (20:11)
[2019-10-17] MEDS: DOXEPIN 25 MG CAPSULE PO SCH (20:11)
[2019-10-17] MEDS: ATORVASTATIN 40 MG TABLET PO SCH (20:11)
[2019-10-18] MEDS ORDERED: NALOXONE 0.4 MG/ML, 1ML ONE (07:58)
== END 2019-10-17 20:25 | DRG 190 ==
LOC: MERGE 19:13 → EDBD 19:13 → ED 19:49 → EDIP 20:45 → 4EST 22:27
PROVIDERS: ADMIT Family Medicine; ATTEND Family Medicine
DX: J44.1 Chronic obstructive pulmonary disease with (acute) exacerbation (principal); E43 Unspecified severe protein-calorie malnutrition; G45.9 Transient cerebral ischemic attack, unspecified; I50.32 Chronic diastolic (congestive) heart failure; J96.10 Chronic respiratory failure, unspecified whether with hypoxia or hypercapnia; I16.9 Hypertensive crisis, unspecified; Z68.1 Body mass index [BMI] 19.9 or less, adult; N39.0 Urinary tract infection, site not specified; D72.829 Elevated white blood cell count, unspecified; F17.210 Nicotine dependence, cigarettes, uncomplicated; F41.9 Anxiety disorder, unspecified; I11.0 Hypertensive heart disease with heart failure; I25.2 Old myocardial infarction; M19.90 Unspecified osteoarthritis, unspecified site; M81.0 Age-related osteoporosis without current pathological fracture; Y90.0 Blood alcohol level of less than 20 mg/100 ml; L97.529 Non-pressure chronic ulcer of other part of left foot with unspecified severity; Z66 Do not resuscitate; Z99.81 Dependence on supplemental oxygen; Z86.73 Personal history of transient ischemic attack (TIA), and cerebral infarction without residual deficits; Z86.718 Personal history of other venous thrombosis and embolism; Z86.711 Personal history of pulmonary embolism; Z82.49 Family history of ischemic heart disease and other diseases of the circulatory system; B95.4 Other streptococcus as the cause of diseases classified elsewhere
CPT/HCPCS: 36415; 36600; 70450; 70551; 71045; 80047; 80053; 80061; 80307; 81001; 82140; 82803; 82962; 85025; 87086; 93005; 93306; 93880; 94640; 96374; 96375; G0378; J2310; J7620; J7626; J2930; J7030; J7512

== ENCOUNTER → 2021-06-15 | Outpatient (CLI) | payer MEDICARE, MEDICAID ==
[~2021-06-15] MED LIST changes: +AMOX1TAB64 PO; -ASPI-515 PO; +ASPI-963 PO; +ASPI325T17 PO; +ATOR40TA78 PO; +NICO-485 TD; -NICO-487 TD; +NICO-587 TD; +PRED20TA PO
== END | disposition home or self-care (01) ==
LOC: EDSTATUS 06-10 13:30 → CFH 12:50
PROVIDERS: ATTEND Internal Medicine
DX: Z12.2 Encounter for screening for malignant neoplasm of respiratory organs (principal); J43.9 Emphysema, unspecified; M81.0 Age-related osteoporosis without current pathological fracture; R91.1 Solitary pulmonary nodule; F17.211 Nicotine dependence, cigarettes, in remission
CPT/HCPCS: 71271